=== PATIENT | male | born 1995 | race Caucasian/White ===

== ENCOUNTER 2018-11-23 11:12 | Observation (INO) | payer BC, SELFPAY ==
[2018-11-23 11:13] VITALS: BP 149/80; PULSE 121; RESP 16; TEMP 36.9; O2SAT 100; BMI 29.6
--- NOTE | 2018-11-23 11:25 | CT_ITS ---
STUDY: CT ABDOMEN AND PELVIS WITHOUT CONTRAST REASON FOR EXAM: Male, 23 years old. 2 day history of right lower quadrant pain with fever and diarrhea. RADIATION DOSAGE (If Supplied By Facility): CTDIvol = ( 7.47 ) mGy, DLP = ( 382.63 ) mGycm TECHNIQUE: Transaxial images were obtained from the dome of the diaphragm to the symphysis pubis with oral contrast, and without intravenous contrast. Sagittal and coronal images were reconstructed. Individualized dose optimization techniques were used for this CT. COMPARISON: Comparison is made with prior study dated December 21, 2016. FINDINGS: The visualized lung bases are unremarkable. The visualized portions of the heart are within normal limits. Normal liver. Normal gallbladder and extrahepatic biliary system. There is mild splenomegaly. Normal pancreas. Normal bilateral adrenal glands. Normal right kidney. There is a 2 mm nonobstructive calculus in the midpole calyx of the left kidney. Normal visualized stomach. Normal small intestine. Diffuse circumferential wall thickening of the descending colon with thickened haustral markings up to the region of the hepatic flexure and proximal transverse colon. Colitis should be ruled out. The appendix is visualized and appears normal. Small lymph nodes are seen within the mesentery in the right lower quadrant suggestive of mesenteric adenitis. Normal abdominal aorta. Normal inferior vena cava. Normal retroperitoneum. The urinary bladder is empty. Normal abdominal wall. Normal osseous structures. CT/Abdomen/Pel W ORAL Cont Only IMPRESSION: Findings in keeping with a colitis involving the descending colon hepatic flexure and proximal transverse colon. Mesenteric adenitis in the right lower quadrant. Electronically Signed: Sumanth Cruz, at 13:36 EDT , Service support ,
--- NOTE | 2018-11-23 11:28 | NURSING ---
PCU NSTEMI, ABD PAIN, VOMITING TAYA
[2018-11-23] MEDS: 0.9% Normal Saline 1,000 ML 1000 ML IV (11:43)
[2018-11-23] MEDS: Ondansetron 4 MG/2 ML Vial IV (11:56)
[2018-11-23 12:07] LABS: AST(SGOT) 21 U/L (15-37); Alanine Aminotransfer ALT/SGPT 17 U/L (16-61); Albumin, Serum 3.5 g/dL (3.2-5.0); Alkaline Phosphatase 60 U/L (45-117); Anion Gap 8 (5-15); BUN 13 mg/dL (7-18); BUN/Creat Ratio 9.6 RATIO (10-20); Calcium,Total 8.7 mg/dL (8.5-10.1); Chloride 99 mmol/L (98-107); Creatinine, Serum 1.35 mg/dL (0.70-1.30); EST Glomerular Filtration Rate 70 mL/min (>60); Est Glom Filt Rate - Afr Amer 85 mL/min (>60); Estimated Creatinine Clearance 83.04 ml/min; Globulin 3.6 g/dL (2.2-4.2); Glucose 100 mg/dL (74-106); Potassium 3.5 mmol/L (3.5-5.1); Protein, Total 7.1 g/dL (6.4-8.2); Sodium Level 133 mmol/L (136-145)
[2018-11-23 12:13] LABS: Absolute Lymphocyte Count 0.49 X10^3/uL (0.83-4.51); Absolute Neutrophil Count 5.2 X10^3/uL (2.0-7.7); Basophil# 0.03 X10^3/uL; Basophil% 0.5 % (0-1); Hematocrit 46.3 % (40-54); Hemoglobin 16.1 g/dL (13.0-16.5); Lymphocyte # 0.49 X10^3/ul (4.0); Lymphocyte % 7.5 % (19-41); Mean Corp Hgb Conc 34.8 g/dL (32-36); Mean Corpuscular Hgb 28.3 pg (27.0-32.0); Mean Corpuscular Volume 81.5 fL (80-94); Monocyte# 0.83 X10^3/uL; Monocyte% 12.7 % (0-10); NRBC Flagged by Analyzer 0 % (0-5); Neutrophil # 5.16 X10^3/uL (2.7-7.7); Neutrophil % 78.8 % (47-70); POSITIVE DIFFERENTIAL YES; POSITIVE MORPHOLOGY YES; Platelet Count 149 K/mm3 (150-450); RBC Distribution Width CV 12.3 % (11.6-14.6); RBC Distribution Width SD 36.8 fl (35.1-43.9); Red Blood Count 5.68 M/mm3 (4.6-6.2); White Blood Count 6.5 K/mm3 (4.4-11.0)
[2018-11-23 12:15] LABS: Differential Indicated SCAN CRITERIA MET
[2018-11-23 13:32] VITALS: BP 115/59; PULSE 101; RESP 15; O2SAT 96
--- NOTE | 2018-11-23 13:41 | NURSING ---
DR Josh MOTLEY
--- NOTE | 2018-11-23 13:48 | NURSING ---
DR Josh GALLEGOS FOR DR FOWLER
--- NOTE | 2018-11-23 14:37 | ED.DCSUM_ITS ---
- ER Visit Summary Date of Service: 11/23/18 Chief Complaint: [Diarrhea and abdominal pain] History of Present Illness: The patient is a 23 M [resents to the emergency department with complaint of abdominal pain and diarrhea for the last 3 days. Patient having frequent watery stools. Patient states that he feels achy all over. Complains of pain to the right lower quadrant continuously over the last 2 days. He has had one episode of vomiting but he has had nausea. He denies any sick contacts. He denies recent antibiotic usage. Patient was seen in urgent care and referred to the ER for evaluation. No family history of inflammatory bowel disease.] Physical Examination: [HEENT-PERRLA, EOMI. Cranial nerves II through XII grossly intact. TMs clear. Mucous membranes dry. No adenopathy. Cardiovascular-regular rate and rhythm without murmur or ectopy Lungs-clear to auscultation, chest wall stable without crepitus or subcu emphysema Abdomen-normoactive bowel sounds, soft. Patient has tenderness palpation of the right lower quadrant with some guarding. There is no rebound, rigidity, or perineal signs. Extremities-intact ?4, normal range of motion, normal pulses, atraumatic] Test Results: [CBC with differential obtained showed a white count of 6.5, hemoglobin 16, hematocrit 46, platelets 149. Chemistries unremarkable. BUN was 13 and creatinine 1.35. LFTs are slightly elevated total bilirubin of 1.4 however is liver enzymes were normal. CT scan the abdomen pelvis showed colitis of the descending colon to the hepatic flexure and proximal transverse colon. He also had mesenteric adenitis of the right lower quadrant.] Emergency Department Course and Treatment: [Given a liter normal same fluid bolus. Patient was discussed with hospitalist will evaluate patient for admission. Enteric pathogens are pending.] Treatment Plan: [Admit] Disposition: [Admit] Impression: [Colitis Dehydration] This note was generated with [employer] dictation software. It may contain incorrect words, spelling, and punctuation that were not noted in review of the chart prior to signing ED Disposition - Plan for ED Patient: Referrals: Care Physician,No Primary [Primary Care Provider] -
--- NOTE | 2018-11-23 14:42 | NURSING ---
MED SURG OBS TERELETSKY COLITIS, DEHYDRATION
[2018-11-23 14:45] VITALS: BMI 29.6
[2018-11-23 14:52] VITALS: BMI 29.6
[2018-11-23 15:03] VITALS: BP 100/46; PULSE 118; RESP 16; O2SAT 97
[2018-11-23] MEDS: 0.9% Normal Saline 1,000 ML 175 ML IV ×2 (15:37→21:05)
[2018-11-23 15:40] VITALS: BP 120/69; PULSE 108; RESP 18; TEMP 39.2; O2SAT 98
[2018-11-23] MEDS: Acetaminophen 325 MG Tablet 650 MG PO (15:46)
--- NOTE | 2018-11-23 16:49 | PCM.HP.STD ---
Problem List (1) Colitis Status: Acute History of Present Illness Date of Admission: 11/23/18 Chief Complaint: Abdominal pain, diarrhea. The patient is a 23 year old M who presents emergency room due to abdominal pain and diarrhea. Patient reports his symptoms began Wednesday morning. He reports 8-10 stools per day and abdominal pain, worse in the right lower quadrant. He has not vomited but reports nausea and poor appetite. Also reports intermittent fever, chills. He states his diarrhea has been persistent and he has been unable to work. Patient reports at least 5 or 6 people at his work have had the same illness. He works as a composition teacher. He denies any past medical history. Past Medical History Allergies No Known Allergies Allergy (Verified 11/23/18 11:15) Home Medications: Ambulatory Orders Medication Instructions Recorded No Known/Unobtainable [No Known 11/30/14 Home Medications] Surgical History: - - Left hand surgery, 2 hernia repairs. Psychiatric History: No pertinent psych hx Lives: Alone Smoking Status: Never smoker Tobacco Use: Chew Alcohol: Occasional Drugs: None - *Family History Maternal History Items: - - Denies known paternal medical history including cardiac history. Paternal History Items: - - Denies known paternal medical history including cardiac history. Review of Systems Constitutional: Reports: Chills, Fever HEENT: Denies: Head Aches, Sinus Congestion, Sinus Drainage Cardiovascular: Denies: Chest Pain, Edema, Palpitations Respiratory: Denies: Cough, Shortness of breath at rest, Sputum production Gastrointestinal: Reports: Abdominal Pain, Diarrhea, Nausea. Denies: Vomiting Genitourinary: Denies: Dysuria Musculoskeletal: Denies: Joint Pain, Joint Tenderness Skin: Denies: Rash, Wounds Neurological: Denies: Numbness, Tingling, Focal weakness Psychiatric: Denies: Anxiety, Depression, Homicidal Ideations, Suicidal Ideations Hematologic/ Lymphatic: Denies: Easy Bruising, Easy Bleeding VTE Information - Inpt Only VTE Present on Admission: No VTE Mechan Device Prophylaxis: None VTE Pharm Prophylaxis ordered?: No Reason prophylaxis not ordered:: Treatment Not Indicated Patient Problems: Active and Suspected Problems Colitis (Acute) - Physical Exam General: Alert, Oriented x3, Cooperative HEENT: Atraumatic, PERRLA, EOMI, Normocephalic Neck: Supple, No JVD, Negative Carotid Bruits Lungs: Clear to auscultation, Normal air movement Cardiovascular: Regular Rhythm, Normal S1, Normal S2, No murmurs, Tachycardic Abdomen: Bowel Sounds Present, Soft, Non-Distended, Tender - Right lower quadrant Extremities: No clubbing, No cyanosis, No edema, Capillary Refill Less than 3 Seconds Skin: No rashes, No breakdown Musculoskeletal: No Tenderness to Palpation of Joints or Extremities Neurological: Cranial nerves II-XII grossly intact, Neuro grossly intact Psych/Mental Status: Normal Affect, Appropriate Vital Signs Temp Pulse Resp BP Pulse Ox 102.6 F H 108 H 18 120/69 98 11/23/18 15:40 11/23/18 15:40 11/23/18 15:40 11/23/18 15:40 11/23/18 15:40 Oxygen Delivery Method Room Air Weight: 195 lb Body Mass Index (BMI) 29.6 Intake and Output for Last 24 Hours 11/21/18 11/22/18 11/23/18 23:59 23:59 23:59 Intake Total 1000 / 1000 Balance 1000 / 1000 Microbiology Past 72 Hours 11/23/18 11:51 Enteric Bacteriology - Final Stool Campylobacter species Laboratory Tests Past 24 Hrs 11/23/18 11/23/18 11:46 11:46 WBC 6.5 RBC 5.68 Hgb 16.1 Hct 46.3 MCV 81.5 MCH 28.3 MCHC 34.8 RDW Std Deviation 36.8 RDW Coeff of Rom 12.3 Plt Count 149 L MPV 10.0 Immature Gran % (Auto) 0.500 Neut % (Auto) 78.8 H Lymph % (Auto) 7.5 L [place] % (Auto) 12.7 H Eos % (Auto) 0.0 Baso % (Auto) 0.5 Absolute Neuts (auto) 5.2 Absolute Lymphs (auto) 0.49 L Nucleated RBC % 0 Differential Comment Sodium 133 L Potassium 3.5 Chloride 99 Carbon Dioxide 26.0 Anion Gap 8 BUN 13 Creatinine 1.35 H Estim Creat Clear Calc 83.04 Est GFR (MDRD) Af Amer 85 Est GFR (MDRD) Non-Af 70 BUN/Creatinine Ratio 9.6 L Glucose 100 Calcium 8.7 Total Bilirubin 1.40 H AST 21 ALT 17 Alkaline Phosphatase 60 Total Protein 7.1 Albumin 3.5 Globulin 3.6 Albumin/Globulin Ratio 1.0 Assessment/Plan All Active Problems Colitis (Acute) 1. Acute colitis secondary to Campylobacter-CT of abdomen demonstrates findings consistent with colitis of the descending colon, hepatic flexure and proximal transverse colon. IV fluids. Oral azithromycin 500 mg x 3 days. PRN antiemetics. PRN pain regimen. 2. Mild dehydration, no acute kidney injury-secondary to #1. IV fluids. Trend BMP. DVT prophylaxis-not indicated, low risk. This patient was seen by PAMELA Waterman under the supervision of Dr. Tian.
[2018-11-23] MEDS: oxyCODONE 5 MG Tablet 10 MG PO ×2 (17:38→21:42)
[2018-11-23] MEDS: Azithromycin 250 MG Tablet 500 MG PO (17:38)
[2018-11-23 17:42] VITALS: TEMP 36.8
[2018-11-23 21:12] VITALS: BP 119/62; PULSE 85; RESP 16; TEMP 37; O2SAT 98
[2018-11-24] MEDS: Acetaminophen 325 MG Tablet 650 MG PO (01:06)
[2018-11-24] MEDS: 0.9% Normal Saline 1,000 ML 175 ML IV ×2 (02:30→08:21)
[2018-11-24 02:34] VITALS: BP 120/62; PULSE 83; RESP 16; TEMP 36.7; O2SAT 99
[2018-11-24 06:33] LABS: Absolute Lymphocyte Count 1.13 X10^3/uL (0.83-4.51); Absolute Neutrophil Count 4.3 X10^3/uL (2.0-7.7); Basophil# 0.03 X10^3/uL; Basophil% 0.4 % (0-1); Eosinophil# 0.08 X10^3/uL; Eosinophils% 1.2 % (0-5); Hematocrit 38.1 % (40-54); Hemoglobin 13.4 g/dL (13.0-16.5); Lymphocyte # 1.13 X10^3/ul (4.0); Lymphocyte % 16.8 % (19-41); Mean Corp Hgb Conc 35.2 g/dL (32-36); Mean Corpuscular Hgb 29.1 pg (27.0-32.0); Mean Corpuscular Volume 82.6 fL (80-94); Mean Platelet Vol. 10.2 fl (6.2-12.0); Monocyte# 1.14 X10^3/uL; NRBC Flagged by Analyzer 0 % (0-5); Neutrophil # 4.28 X10^3/uL (2.7-7.7); Neutrophil % 63.9 % (47-70); POSITIVE MORPHOLOGY YES; Platelet Count 131 K/mm3 (150-450); RBC Distribution Width CV 12.7 % (11.6-14.6); RBC Distribution Width SD 38.3 fl (35.1-43.9); Red Blood Count 4.61 M/mm3 (4.6-6.2); White Blood Count 6.7 K/mm3 (4.4-11.0)
[2018-11-24 06:36] LABS: Differential Indicated SCAN CRITERIA MET
[2018-11-24 06:53] LABS: Differential Comment SCANNED
[2018-11-24 06:54] LABS: Anion Gap 3 (5-15); BUN 11 mg/dL (7-18); BUN/Creat Ratio 10.3 RATIO (10-20); Calcium,Total 8.2 mg/dL (8.5-10.1); Chloride 106 mmol/L (98-107); Creatinine, Serum 1.07 mg/dL (0.70-1.30); EST Glomerular Filtration Rate 92 mL/min (>60); Est Glom Filt Rate - Afr Amer 111 mL/min (>60); Estimated Creatinine Clearance 104.77 ml/min; Glucose 88 mg/dL (74-106); Potassium 3.7 mmol/L (3.5-5.1); Sodium Level 137 mmol/L (136-145)
[2018-11-24 07:57] VITALS: BP 124/63; PULSE 89; RESP 16; TEMP 36.5; O2SAT 97
[2018-11-24] MEDS: Azithromycin 250 MG Tablet 500 MG PO (08:27)
--- NOTE | 2018-11-24 11:36 | DCINST_ITS ---
- Discharge Diagnoses Current Active Problems: Current Active and Chronic Problems Colitis (Acute) Reason(s) for Visit for Discharge Instructions: Diarrhea You will use the following diet at home:: Regular Your food should be the consistency of: Regular Your liquids should be the consistency of: Regular/Thin Discharge Activity: Return to Normal Activity Additional Instructions: Continue to maintain hand hygiene. Keep yourself hydrated and complete your antibiotics. Follow-up with your primary care doctor within 1-2 weeks. Allergies/Adverse Reactions: Allergies No Known Allergies Allergy (Verified 11/23/18 11:15) Medications to take at Discharge Azithromycin [Zithromax] 500 mg PO Q24 #1 tab 11/24/18 The following prescriptions were given: Azithromycin [Zithromax] 500 mg PO Q24 #1 tab Transmission Status: Received by EVE ANDERSON-[address] [facility] Primary Care Physician: Care Physician,No Primary [Primary Care Provider] - Please follow up with your Primary Care Physician in: within 1-2 weeks Test Results: Test results from this visit will be discussed in further detail at your follow- up appointment, if applicable. Proposed Discharge Date: 11/24/18
--- NOTE | 2018-11-24 12:00 | DS.PCM_ITS ---
Discharge Date and Diagnosis Date of Admission: 11/23/18 Date of Discharge: 11/24/18 - Primary Discharge Diagnosis Active and Suspected Problems Colitis (Acute) Hospital Course and Treatment Summary of Care Provided: The patient is a 23 year old M [] Subjective: The day of discharge patient was seen and examined. Denied any new complaint. [place] improved. He had had only 1?2 bowel movements. Denied any dizziness or palpitations. No fevers or chills or abdominal discomfort - Physical Exam General: Alert, Oriented x3, Cooperative, No apparent distress HEENT: Atraumatic, PERRLA, EOMI, Normocephalic Oral: Moist Mucosa Neck: Supple Lungs: Clear to auscultation, Normal air movement Cardiovascular: Regular rate, Regular Rhythm, Normal S1, Normal S2, No murmurs Abdomen: Bowel Sounds Present, Soft, Non Tender, Non-Distended, No Hepato- splenomegaly Extremities: No edema Skin: No rashes, No breakdown Musculoskeletal: No Tenderness to Palpation of Joints or Extremities Lymphatic: No Cervical, Supraclavicular, or Inguinal Adenopathy Neurological: Cranial nerves II-XII grossly intact, Neuro grossly intact Psych/Mental Status: Normal Affect, Appropriate Vital Signs Temp Pulse Resp BP Pulse Ox 97.7 F L 89 16 124/63 H 97 11/24/18 07:57 11/24/18 07:57 11/24/18 07:57 11/24/18 07:57 11/24/18 07:57 Oxygen Delivery Method Room Air Weight: 88.451 kg Body Mass Index (BMI) 29.6 Intake and Output for Last 24 Hours 11/22/18 11/23/18 11/24/18 23:59 23:59 23:59 Intake Total 2456.67 / 2456.67 2707.92 / 2707.92 Balance 2456.67 / 2456.67 2707.92 / 2707.92 Microbiology Past 72 Hours 11/23/18 11:51 Enteric Bacteriology - Final Stool Campylobacter species Laboratory Tests Past 24 Hrs 11/23/18 11/23/18 11/24/18 11:46 11:46 05:55 WBC 6.5 6.7 RBC 5.68 4.61 Hgb 16.1 13.4 Hct 46.3 38.1 L MCV 81.5 82.6 MCH 28.3 29.1 MCHC 34.8 35.2 RDW Std Deviation 36.8 38.3 RDW Coeff of Rom 12.3 12.7 Plt Count 149 L 131 L MPV 10.0 10.2 Immature Gran % (Auto) 0.500 0.700 Neut % (Auto) 78.8 H 63.9 Lymph % (Auto) 7.5 L 16.8 L [place] % (Auto) 12.7 H 17.0 H Eos % (Auto) 0.0 1.2 Baso % (Auto) 0.5 0.4 Absolute Neuts (auto) 5.2 4.3 Absolute Lymphs (auto) 0.49 L 1.13 Nucleated RBC % 0 0 Differential Comment SCANNED Sodium 133 L Potassium 3.5 Chloride 99 Carbon Dioxide 26.0 Anion Gap 8 BUN 13 Creatinine 1.35 H Estim Creat Clear Calc 83.04 Est GFR (MDRD) Af Amer 85 Est GFR (MDRD) Non-Af 70 BUN/Creatinine Ratio 9.6 L Glucose 100 Calcium 8.7 Total Bilirubin 1.40 H AST 21 ALT 17 Alkaline Phosphatase 60 Total Protein 7.1 Albumin 3.5 Globulin 3.6 Albumin/Globulin Ratio 1.0 11/24/18 05:55 WBC RBC Hgb Hct MCV MCH MCHC RDW Std Deviation RDW Coeff of Rom Plt Count MPV Immature Gran % (Auto) Neut % (Auto) Lymph % (Auto) [place] % (Auto) Eos % (Auto) Baso % (Auto) Absolute Neuts (auto) Absolute Lymphs (auto) Nucleated RBC % Differential Comment Sodium 137 Potassium 3.7 Chloride 106 Carbon Dioxide 28.0 Anion Gap 3 L BUN 11 Creatinine 1.07 Estim Creat Clear Calc 104.77 Est GFR (MDRD) Af Amer 111 Est GFR (MDRD) Non-Af 92 BUN/Creatinine Ratio 10.3 Glucose 88 Calcium 8.2 L Total Bilirubin AST ALT Alkaline Phosphatase Total Protein Albumin Globulin Albumin/Globulin Ratio Discharge Diet: No Restrictions Discharge Activity: Return to Normal Activity Home Medications: Medications to take at Discharge Azithromycin [Zithromax] 500 mg PO Q24 #1 tab 11/24/18 Following Prescrptions Were Given to Patient: Azithromycin [Zithromax] 500 mg PO Q24 #1 tab Transmission Status: Received by EVE ANDERSON-[address] [facility] Primary Care Physician: Care Physician,No Primary [Primary Care Provider] - Please follow up with your Primary Care Physician in: within 1-2 weeks Disposition: Home Minutes spent on discharge:: 40 Patient Condition:: Stable Medical Necessity - Tobacco Use Smoking Status: Never smoker Tobacco Use: Chew Meaningful Use Info Meaningful Use Diagnoses (Choose all that apply): None applicable Code Visit OBSV E&M: 07749 Observation care discharge
--- NOTE | 2018-11-24 13:02 | CASEMGMT ---
Case Management Progress Note: Met with patient at bedside, for DC today, states no PCP- list provided. Patient inquiring about Work note- nurse to be notified. Francie Rosa RNCM
[2018-11-24 13:36] VITALS: BP 122/63; PULSE 94; RESP 18; TEMP 36.8; O2SAT 98
== END 2018-11-24 11:34 | disposition home or self-care (01) ==
LOC: ED 11:30 → PCU 14:52
PROVIDERS: Admitting Provider Internal Medicine; Emergency Provider Emergency Medicine; Referring Provider Internal Medicine; Visit Provider Internal Medicine
DX: K52.9 Noninfective gastroenteritis and colitis, unspecified (principal); E86.0 Dehydration; F17.220 Nicotine dependence, chewing tobacco, uncomplicated
CPT/HCPCS: 36415; 74176; 80048; 80053; 85025; 87506; 96361; 96374; 99218; 99284; 99406; J7030; A4216; G0378; J2405